=== PATIENT | female | born 1985 | race Two or more races ===

== ENCOUNTER 2024-03-24 08:00 | Day surgery (SDC) | payer MEDICAID, SELFPAY ==
[2024-03-23 09:15] VITALS: BMI 30.5
[2024-03-23 10:50] LABS: Basophils # (Auto) 0.1 Thou/mm3 (0.0-0.2); Basophils % (Auto) 1 % (0-2.5); Eosinophils # (Auto) 0.1 Thou/mm3 (0.0-0.5); Eosinophils % (Auto) 2 % (0-10); Hematocrit 37.1 % (36.0-46.0); Hemoglobin 11.2 g/dL (12.0-16.0); Immature Granulocytes % (Auto) 0 % (0-0); Immature Granulocytes Auto 0.03 Thou/mm3 (0.00-0.00); Lymphocytes # (Auto) 2.4 Thou/mm3 (1.0-4.8); Lymphocytes % (Auto) 31 % (10-50); Mean Corpuscular HGB Conc 30.2 g/dl (31.0-37.0); Mean Corpuscular Hemoglobin 22.7 pg (25.0-35.0); Mean Corpuscular Volume 75 fL (80-100); Monocytes # (Auto) 0.5 Thou/mm3 (0.0-0.8); Monocytes % (Auto) 7 % (0-12); Neutrophils # (Auto) 4.8 Thou/mm3 (1.8-7.7); Neutrophils % (Auto) 60 % (37-80); Nucleated Red Blood Cell % 0 /100 WBC (0); Platelet Count 346 Thou/mm3 (140-440); RDW Standard Deviation 47.8 fL (36.4-46.3); Red Blood Count 4.94 Miln/mm3 (4.00-5.20)
[2024-03-23 11:04] LABS: Alanine Aminotransferase 16 U/L (10-49); Albumin, Serum 4.7 gm/dL (3.5-5.0); Albumin/Globulin Ratio 1.5 (1.2-2.2); Alkaline Phosphatase 77 U/L (46-116); Anion Gap 8 (7-16); Aspartate Amino Transferase 12 U/L (0-34); BUN/Creatinine Ratio 15 Ratio (12-20); Bilirubin,Total 0.6 mg/dL (0.3-1.2); Blood Urea Nitrogen 9 mg/dL (9-23); Calcium 9.2 mg/dL (8.3-10.6); Calcium (Corrected) 9.2 mg/dL (8.5-10.1); Chloride 105 mMol/L (98-107); Creatinine (Component) 0.6 mg/dL (0.6-1.3); Estimated Creatinine Clearance 118.8 mL/min (>60); Globulin 3.2 gm/dL (2.3-3.5); Glucose 94 mg/dL (74-106); Osmolality,Calculated 276 (275-295); Sodium 139 mMol/L (136-145); Total Protein 7.9 gm/dL (5.7-8.2); eGFR > 60 See Note
[2024-03-23 11:13] LABS: HCG,Qualitative Serum Negative
[2024-03-24] VITALS (9 sets, daily range): BP systolic 129–153; BP diastolic 73–97; PULSE 60–86; RESP 14–20; TEMP 36.6–36.8; O2SAT 98–100; BMI 30.5
[2024-03-24] MEDS: RINGERS LACTATED 1000 ML 1,000 ML 20 ML IV (08:47)
--- NOTE | 2024-03-24 10:31 | PD.SUROPNT ---
Date of Procedure 03/24/24 Pre Op Diagnosis Symptomatic cholelithiasis Post Op Diagnosis Cholelithiasis with cholecystitis Procedure Laparoscopic cholecystectomy Findings Mildly distended gallbladder with gallstones and chronic cholecystitis Procedure Description Patient was brought into the operating room in supine position. After administration of general endotracheal anesthesia abdomen was prepped and draped in standard surgical manner. A Veress needle was inserted through the umbilicus and pneumoperitoneum was obtained up to 15 mmHg. The Veress needle was then removed, a 5 mm infraumbilical incision was made and the 5mm trocar was inserted. Laparoscopic camera was placed. Under direct visualization a laparoscopic camera a 10 mm trocar was placed in subxiphoid and two 5 mm trocars placed in right upper quadrant. The gallbladder was identified and was noted to be mildly distended with gallstones and chronic cholecystitis. It was retracted cephalad and laterally. Dissection started near the infundibulum of gallbladder where cystic duct and gallbladder junction clearly identified. The cystic duct was circumferentially dissected off the peritoneum and surrounding inflammatory tissue. The critical view of safety was clearly demonstrated. Cystic duct was then divided between 2 endoclips proximally and one distally. The cystic artery was similarly dissected and divided. The gallbladder was then from the liver bed using electrocautery. The gallbladder was then placed inside an Endo Catch and removed from the abdomen utilizing subxiphoid trocar site. The area was copiously and thoroughly washed and irrigated, all the fluid was suctioned and the suction fluid returned clear. Hemostasis achieved using electrocautery. Endoclips noted be in place and intact without any bleeding or any leakage. Hemostasis was adequate and satisfactory. The subxiphoid trocar sites fascial defect was closed with 0 Vicryl using Endo Closure device. Instruments and trocars removed, pneumoperitoneum was evacuated and the incisions closed with 4-0 Monocryl in subcuticular fashion. Instrument needle and sponge counts were all reported to be correct X2. Patient tolerated the procedure well, was extubated, breathing spontaneously and without difficulty and was transferred to postanesthesia care in stable condition. Anesthesia GETA and local Pathology / specimen Other (Gallbladder and contents) Estimated Blood Loss 10 Condition Stable Disposition PACU Surgeon Benji Becerra MD Surgical Staff Operation Date: 03/24/24 10:30 Case Staff MARKETING CONTENT MANAGER: Rito Baker RNpreparatory technician: Veronica Huitron
--- NOTE | 2024-03-24 10:35 | SUR.PHASEI ---
1035: Pt. arrived with oral airway in place, vitals stable, breathing unlabored, no signs of distress, x4 dermabond sites to ABD CDI, no active bleed noted, report received from Surendra NEW and Gonzalez GLASER.
[2024-03-24] MEDS: fentaNYL CIT INJ 50 mCg/ML AMP 2ML IV (10:44)
[2024-03-24] MEDS: HYDROcodone/APAP 5/325 TABLET 1 TAB PO (11:34)
--- NOTE | 2024-03-24 11:46 | SUR.PHASEII ---
1146: Pt. AAOx4, vitals stable, breathing unlabored, complaint of slight pain, medications administered, x4 dressing to ABD CDI, no active bleed, noted, pt. tolerated sips of water well, pt. ambulated to wheelchair with steady gait and no assist, no complications. Gave discharge instructions to the pt. and her ride in [place] per pt. request, both verbalized understanding and had no further questions. Pt. left with all personal belongings.
== END 2024-03-24 11:46 | disposition home or self-care (01) ==
PROVIDERS: PCP Family Medicine; Referring Provider Surgery; Visit Provider Surgery
PROC: 0FT44ZZ Resection of Gallbladder, Percutaneous Endoscopic Approach (ICD-10-PCS; CPT 47562; principal; 2024-03-24 10:15)
DX: K80.10 Calculus of gallbladder with chronic cholecystitis without obstruction (principal)
CPT/HCPCS: 47562; 36415; 80053; 84703; 85025; A4217; A4649; J0694; J1100; J1885; J2250; J2405; J2704; J3010; J3490; J7120; A9270